=== PATIENT | female | born 1955 | race Caucasian/White ===

== ENCOUNTER 2022-08-11 20:37 | Observation (INO) | payer SELFPAY ==
[2022-08-11 21:37] LABS: #Monocytes 0.6 10x3/uL (0.0-1.1); #Neutrophils 5.2 10x3/uL (1.5-8.4); %Basophils 0.2 % (0.0-2.0); %Eosinophils 0.5 % (0.0-6.0); %Lymphocytes 30.5 % (18.0-47.0); %Monocytes 6.7 % (0.0-10.0); %Neutrophils 61.7 % (40.0-75.0); Hemoglobin 12.2 g/dL (12.0-15.5); Mean Corpuscular HGB CONC 34.5 g/dL (32.0-36.0); Mean Corpuscular Hemoglobin 28.9 pg (27.0-33.0); Mean Corpuscular Volume 83.9 fl (81.6-98.3); Mean Platelet Volume 11.5 fl (7.4-10.4); Platelet Count 195 10x3/uL (150-450); RBC Distribution Width 14.2 % (11.5-14.5); Red Blood Cell (RBC) Count 4.22 10x6/uL (3.90-5.03); White Blood Cell (WBC) Count 8.3 10x3/uL (3.5-10.5)
[2022-08-11 21:52] LABS: ALT (SGPT) 21 U/L (8-55); AST (SGOT) 18 U/L (5-34); Albumin 4.6 g/dL (3.4-4.8); Alkaline Phosphatase 82 U/L (40-110); Anion Gap 13 mmol/L (10-20); BUN (Urea Nitrogen) 15 mg/dL (9.8-20.1); Bilirubin, Total 0.4 mg/dL (0.2-1.2); Calc. Creatinine Clearance 0 mL/min (70-130); Calcium 10.4 mg/dL (7.8-10.44); Carbon Dioxide 25 mmol/L (23-31); Chloride 103 mmol/L (98-107); Estimated GFR 72; Globulin 3.9 g/dL (2.4-3.5); Glucose 113 mg/dL (80-115); Potassium 3.8 mmol/L (3.5-5.1); Protein, Total 8.5 g/dL (5.8-8.1); Sodium 137 mmol/L (136-145)
[2022-08-11 22:08] LABS: Lipase 20 U/L (8-78); Magnesium 2.3 mg/dL (1.6-2.6)
[2022-08-11] MEDS ORDERED: Aspirin Chewable 81 MG TAB ONE (23:56)
[2022-08-11] MEDS ORDERED: Nitroglycerin 2% Ointment 1 INCH/1 GM Packet ONE (23:57)
[2022-08-12 00:18] LABS: Troponin I Less than 0.010 ng/mL (< 0.028)
[2022-08-12 02:22] LABS: SARS-CoV-2 NAA Rapid Test DETECTED (NotDetected)
[2022-08-12 02:47] VITALS: BMI 30.4
[2022-08-12] MEDS ORDERED: Nitroglycerin 0.4 MG TAB (25 Tab Bottle) SL PRN (03:38)
[2022-08-12] MEDS ORDERED: Potassium Chloride 20 MEQ TAB PO SCH (03:45)
[2022-08-12] MEDS ORDERED: Enoxaparin Sodium 40 MG/0.4 ML SYRINGE SC SCH (04:00)
[2022-08-12 05:27] LABS: Cardiac Risk 5.7 (Less than 4.5); Cholesterol 183 mg/dl (< 200 Desired); HDL Cholesterol 32 mg/dL (>60 Neg Risk); LDL Cholesterol, Calculated 129 mg/dL; Triglycerides 108 mg/dL (Less than 150)
[2022-08-12 05:28] LABS: Troponin I Less than 0.010 ng/mL (< 0.028)
[2022-08-12] MEDS ORDERED: Nitroglycerin 2% Ointment 1 INCH/1 GM Packet TOP SCH (06:00)
[2022-08-12] MEDS ORDERED: Acetaminophen 325 MG TAB PO PRN (06:26)
[2022-08-12] MEDS ORDERED: Morphine 2 MG/ML VIAL SLOW IVP PRN (07:34)
[2022-08-12 08:17] LABS: Troponin I Less than 0.010 ng/mL (< 0.028)
[2022-08-12] MEDS ORDERED: Valsartan 80 MG TAB PO SCH ×2 (09:00→21:00)
[2022-08-12] MEDS ORDERED: Atenolol 25 MG TAB PO SCH (09:00)
[2022-08-12] MEDS ORDERED: Hydrochlorothiazide 25 MG TAB PO SCH (09:00)
[2022-08-12] MEDS ORDERED: Aspirin Chewable 81 MG TAB PO SCH (09:00)
[2022-08-12 14:51] VITALS: BP 132/78; TEMP 98.3
== END 2022-08-12 13:50 | disposition home or self-care (01) ==
LOC: CSHERS 20:37 → CSHTELE 08-12 02:45
PROVIDERS: ADMIT Family Medicine; ATTEND Family Medicine
DX: R07.89 Other chest pain (principal); R00.2 Palpitations; R94.31 Abnormal electrocardiogram [ECG] [EKG]; I10 Essential (primary) hypertension; I25.2 Old myocardial infarction; U07.1 COVID-19; Q63.1 Lobulated, fused and horseshoe kidney; F41.9 Anxiety disorder, unspecified; Z79.82 Long term (current) use of aspirin; Z79.899 Other long term (current) drug therapy; Z90.710 Acquired absence of both cervix and uterus; K76.89 Other specified diseases of liver
CPT/HCPCS: 36415; 71045; 80053; 80061; 83690; 83735; 83880; 84484; 85025; 85379; 93005; 93010; 93306; 96372; G0378; J1650; U0002